=== PATIENT | female | born 1960 | race Caucasian/White ===

== ENCOUNTER 2019-09-11 07:39 | Inpatient (IN) | payer BC, SELFPAY ==
[2019-09-11] VITALS (10 sets, daily range): BP systolic 114–135; BP diastolic 70–90
[~2019-09-11] VITALS: Ht 176.5 cm; Wt 81.8 kg
[2019-09-11] MEDS ORDERED: NO HOME MEDS (07:49)
[2019-09-11] MEDS ORDERED: aminocaproic acid 250 MG/1 ML inj. ONE (08:00)
[2019-09-11] MEDS ORDERED: albumin (human) 25% 100 ML IV solution IV ONE (08:00)
[2019-09-11] MEDS ORDERED: phenylephrine 10mg/ml inj. ONE (08:00)
[2019-09-11] MEDS ORDERED: sodium bicarbonate (8.4%) 1 mEq/ml syringe ONE (08:00)
[2019-09-11] MEDS ORDERED: calcium chloride 100 MG/1 ML inj IV ONE (08:00)
[2019-09-11] MEDS ORDERED: LIDOcaine 2% (20 mg/ml) 5ml cardiac syringe ONE (08:00)
[2019-09-11] MEDS ORDERED: heparin 10,000 units/1 ML INJ ONE (08:00)
[2019-09-11] MEDS ORDERED: MAGNESIUM SULFATE 4 MEQ/ML (5gm/10ml) injection ONE (08:00)
[2019-09-11] MEDS ORDERED: methylPREDNISolone sod. succ. 500mg inj ONE (08:00)
[2019-09-11] MEDS ORDERED: LORazepam 1 MG tablet PO ONE (08:25)
[2019-09-11 08:51] LABS: BASOPHILS % (AUTO) 0.4 % (0-1); EOSINOPHILS % (AUTO) 0.2 % (0-6); HEMATOCRIT 45.9 % (35.0-45.0); LYMPHOCYTES # (AUTO) 2.5 X10'3 (1.1-4.8); LYMPHOCYTES % (AUTO) 22.9 % (21-51); MEAN CORPUSCULAR HEMOGLOBIN 32.1 PG (27.0-31.0); MEAN CORPUSCULAR HGB CONC 34.9 g/dL (33.0-36.5); MEAN CORPUSCULAR VOLUME 92.1 FL (78-98); MEAN PLATELET VOLUME 8.9 FL (7.4-10.4); MONOCYTES # (AUTO) 0.7 X10'3 (0-0.9); MONOCYTES % (AUTO) 6.1 % (2-12); NEUTROPHILS # (AUTO) 7.6 X10'3 (1.8-7.7); NEUTROPHILS % (AUTO) 70.4 % (42-75); PLATELET COUNT 210 X10'3 (140-440); RED BLOOD COUNT 4.98 X10'6 (4.20-5.60); RED CELL DISTRIBUTION WIDTH 12.7 % (11.5-14.5); WHITE BLOOD COUNT 10.8 X10'3 (4.5-11.0)
--- NOTE | 2019-09-11 08:54 | NUR ---
pt states she does not want the ativan at this time. she was stating if she could just get a phone she wouldn't feel anxious. looking for a phone and or ranch hand livestock cord that she could use.
[2019-09-11] MEDS: atorvastatin 20mg tablet PO SCH (09:07)
[2019-09-11] MEDS: metoprolol tartrate 25mg tablet PO SCH ×2 (09:07→20:46)
--- NOTE | 2019-09-11 09:09 | NUR ---
radiology called to see if they could come down and do echo, they are on their way
[2019-09-11 09:12] LABS: ALANINE AMINOTRANSFERASE 47 U/L (12-78); ALBUMIN 4.1 G/DL (3.4-5.0); ALBUMIN/GLOBULIN RATIO 1.1 (1.1-1.5); ALKALINE PHOSPHATASE 75 IU/L (46-116); ANION GAP 13 (8-16); ASPARTATE AMINO TRANSFERASE 31 U/L (10-37); BILIRUBIN,TOTAL 0.7 MG/DL (0.1-1.0); BLOOD UREA NITROGEN 13 MG/DL (7-18); BUN/CREATININE RATIO 20.6 (6.6-38.0); CHLORIDE 107 MMOL/L (99-107); CREATININE 0.63 MG/DL (0.40-0.90); GLUCOSE 90 MG/DL (70-104); POTASSIUM 3.7 MMOL/L (3.5-5.1); SODIUM 142 MMOL/L (135-145); TOTAL CARBON DIOXIDE 22.5 MMOL/L (24-32); TOTAL PROTEIN 7.7 G/DL (6.4-8.2); eGFR > 90 ML/MIN
[2019-09-11 09:18] LABS: CHOL/HDL RATIO 4.1 (0.00-4.99); CHOLESTEROL 189 MG/DL (0-200); HDL CHOLESTEROL 46 MG/DL (35-60); LDL CHOLESTEROL 120 MG/DL (50-100); MAGNESIUM 1.9 MG/DL (1.5-2.4); TRIGLYCERIDES 139 MG/DL (20-135)
[2019-09-11] MEDS ORDERED: magnesium 4gm in 100ml NS 100 ML IV PRN (10:45)
[2019-09-11] MEDS ORDERED: magnesium Cl slow-release 64mg tablet PO PRN (10:45)
[2019-09-11] MEDS ORDERED: ondansetron/PF 4mg/2ml inj IV PRN (10:45)
[2019-09-11] MEDS ORDERED: morphine 2 MG/ML inj. syringe IV PRN ×2 (10:45)
[2019-09-11] MEDS ORDERED: HYDROcodone/acetaminophen 5mg/325mg tablet PO PRN (10:45)
[2019-09-11] MEDS ORDERED: potassium CL 10mEq/100ml bag 100 ML IV PRN ×2 (10:45)
[2019-09-11] MEDS ORDERED: potassium Cl 20 mEq SR tablet PO PRN ×2 (10:45)
[2019-09-11] MEDS ORDERED: acetaminophen 325mg tablet PO PRN ×2 (10:45)
[2019-09-11] MEDS ORDERED: HYDROcodone/acetaminophen 10/325mg tab PO PRN (10:45)
[2019-09-11] MEDS ORDERED: mag hydrox/Alum hydrox/simeth 30ml oral suspension PO PRN (10:45)
[2019-09-11] MEDS ORDERED: magnesium 2GM in 50ml NS 50 ML IV PRN (10:45)
[2019-09-11] MEDS ORDERED: heparin 25,000 UNIT/250ml bag 250 ML IV SCH (10:54)
[2019-09-11] MEDS ORDERED: heparin 10,000 units/1 ML INJ IV PRN (10:55)
[2019-09-11] MEDS ORDERED: heparin 10,000 units/1 ML INJ IV ONE (10:55)
[2019-09-11] MEDS: normal saline 1000ml 1,000 ML IV SCH ×2 (10:58→20:47)
--- NOTE | 2019-09-11 13:00 | NUR ---
Patient arrived to PCU and ambulated to hospital bed. Telemetry monitoring initiated. Patient oriented to room and to call light. Vital signs: HR: 73, O2 97% on RA, BP 138/92, RR 18. Pain 0/10. 2 RN skin check performed. All immediate needs met at this time.
[2019-09-11] MEDS ORDERED: iohexol 350MG/ML 100ml bottle IV ONE (17:51)
[2019-09-11] MEDS ORDERED: LIDOcaine 1% (10mg/ml)w/preservative injection 20ml MDV ONE (17:51)
[2019-09-11] MEDS ORDERED: midazolam 2 mg/2 ml injection ONE (18:12)
[2019-09-11] MEDS ORDERED: fentaNYL/PF 50MCG/1 ML 2ML syringe ONE (18:12)
--- NOTE | 2019-09-11 18:30 | NUR ---
Patient in room PCU 3024. I have received report from Ofelia SANABRIA and had the opportunity to ask questions and assume patient care.
--- NOTE | 2019-09-11 18:59 | NUR ---
Orientee documentation: I have reviewed and agree with all interventions, assessments performed and documented by DANIELE Whelan. Orientee Medication Administration: For this medication-pass time frame, all medication were reviewed, dispensed, administered and documented per hospital policy by DANIELE Whelan.
[2019-09-11] MEDS ORDERED: OXAZEpam 15mg capsule PO PRN (19:20)
[2019-09-11] MEDS ORDERED: proCHLORperazine 10 MG/2 ml inj IV PRN (19:20)
[2019-09-11] MEDS ORDERED: nitroGLYCERIN 0.4mg SUBLingual tab SL PRN (19:20)
[2019-09-11] MEDS ORDERED: metoprolol tartrate 50mg tablet PO SCH (20:00)
[2019-09-11] MEDS: K and/or MAG REPLACEMENT MC SCH (20:00)
[2019-09-11] MEDS ORDERED: temazepam 15mg capsule PO PRN (21:00)
[2019-09-12 00:40] VITALS: BP 105/65
[2019-09-12 02:00] VITALS: BP 103/66
[2019-09-12 05:23] LABS: ALANINE AMINOTRANSFERASE 42 U/L (12-78); ALBUMIN 3.4 G/DL (3.4-5.0); ALBUMIN/GLOBULIN RATIO 1.1 (1.1-1.5); ALKALINE PHOSPHATASE 80 IU/L (46-116); ANION GAP 7 (8-16); ASPARTATE AMINO TRANSFERASE 28 U/L (10-37); BILIRUBIN,TOTAL 0.5 MG/DL (0.1-1.0); BLOOD UREA NITROGEN 15 MG/DL (7-18); BUN/CREATININE RATIO 23.4 (6.6-38.0); CALCIUM 8.9 MG/DL (8.5-10.1); CHLORIDE 110 MMOL/L (99-107); CHOL/HDL RATIO 4.8 (0.00-4.99); CHOLESTEROL 153 MG/DL (0-200); CREATININE 0.64 MG/DL (0.40-0.90); GLUCOSE 88 MG/DL (70-104); HDL CHOLESTEROL 32 MG/DL (35-60); LDL CHOLESTEROL 92 MG/DL (50-100); MAGNESIUM 1.9 MG/DL (1.5-2.4); POTASSIUM 4.3 MMOL/L (3.5-5.1); SODIUM 144 MMOL/L (135-145); TOTAL CARBON DIOXIDE 27.3 MMOL/L (24-32); TOTAL PROTEIN 6.6 G/DL (6.4-8.2); TRIGLYCERIDES 223 MG/DL (20-135); eGFR > 90 ML/MIN
[2019-09-12 05:24] LABS: BASOPHILS # (AUTO) 0.1 X10'3 (0-0.2); BASOPHILS % (AUTO) 0.7 % (0-1); EOSINOPHILS # (AUTO) 0.1 X10'3 (0-0.9); EOSINOPHILS % (AUTO) 1.4 % (0-6); HEMATOCRIT 42.8 % (35.0-45.0); HEMOGLOBIN 14.8 g/dl (12.0-16.0); LYMPHOCYTES # (AUTO) 3.7 X10'3 (1.1-4.8); LYMPHOCYTES % (AUTO) 38.2 % (21-51); MEAN CORPUSCULAR HEMOGLOBIN 32.5 PG (27.0-31.0); MEAN CORPUSCULAR HGB CONC 34.7 g/dL (33.0-36.5); MEAN CORPUSCULAR VOLUME 93.5 FL (78-98); MEAN PLATELET VOLUME 8.8 FL (7.4-10.4); MONOCYTES % (AUTO) 9.8 % (2-12); NEUTROPHILS # (AUTO) 4.8 X10'3 (1.8-7.7); NEUTROPHILS % (AUTO) 49.9 % (42-75); PLATELET COUNT 196 X10'3 (140-440); RED BLOOD COUNT 4.57 X10'6 (4.20-5.60); RED CELL DISTRIBUTION WIDTH 12.5 % (11.5-14.5); WHITE BLOOD COUNT 9.7 X10'3 (4.5-11.0)
[2019-09-12 06:00] VITALS: BP 130/71
--- NOTE | 2019-09-12 06:06 | NUR ---
Problems reprioritized. Patient report given, questions answered & plan of care reviewed with Ofelia SANABRIA.
--- NOTE | 2019-09-12 06:27 | NUR ---
Patient in room PCU 3024. I have received report from Christel SANABRIA and had the opportunity to ask questions and assume patient care. Patient in bed resting comfortably. In no acute distress. All immediate needs met at this time.
[2019-09-12] MEDS: K and/or MAG REPLACEMENT MC SCH ×2 (08:00→20:00)
[2019-09-12] MEDS ORDERED: atorvastatin 20mg tablet PO SCH (08:00)
[2019-09-12] MEDS: metoprolol tartrate 25mg tablet PO SCH ×2 (08:27→20:36)
[2019-09-12] MEDS: atorvastatin 20mg tablet PO SCH (08:28)
[2019-09-12] MEDS: aspirin 81mg tablet.DR PO SCH (08:28)
[2019-09-12 08:37] LABS: HEMOGLOBIN A1C 5.3 % (4.5-6.2)
[2019-09-12 09:14] LABS: CLARITY,URINE CLOUDY (Clear); COLOR,URINE YELLOW (Yellow); GLUCOSE, URINE NEGATIVE (Neg); KETONES,URINE NEGATIVE (Neg); LEUKOCYTE ESTERASE ,URINE NEGATIVE (Neg); NITRITES, URINE NEGATIVE (Neg); OCCULT BLOOD,URINE MODERATE (Neg); PH,URINE 5.5 (4.8-8.0); PROTEIN,URINE NEGATIVE (Neg)
[2019-09-12 09:17] LABS: UA COLLECTION TYPE NON-SPECIFIED
[2019-09-12 09:19] LABS: URINE AMPHETAMINE SCREEN NEGATIVE (Neg); URINE BARBITUATE SCREEN NEGATIVE (Neg); URINE BENZODIAZEPINES SCREEN POSITIVE (Neg); URINE CANNABINOID SCREEN POSITIVE (Neg); URINE COCAINE SCREEN NEGATIVE (Neg); URINE METHADONE SCREEN NEGATIVE (Neg); URINE OPIATE SCREEN NEGATIVE (Neg); URINE PHENCYCLIDINE SCREEN NEGATIVE (Neg)
[2019-09-12 09:27] LABS: MUCUS STRANDS MANY /LPF (Neg); SQUAMOUS EPITHELIAL CELL,UR MANY /LPF (FEW)
[2019-09-12 09:28] LABS: BACTERIA,URINE 1+ /HPF (Neg); RBC,URINE 0-2 /HPF (0-2); WBC,URINE 0-4 /HPF (0-4)
[2019-09-12 09:29] LABS: HYALINE CASTS 0-3 /LPF (NEGATIVE)
[2019-09-12 11:00] VITALS: BP_SYST 116; BP_SYST 130; BP_DIAS 71; BP_DIAS 80
[2019-09-12] MEDS ORDERED: dextrose 50%-water 50ml dispensing syringe IV PRN (13:20)
[2019-09-12 14:54] LABS: PARTIAL THROMBOPLASTIN TIME 26 SECONDS (22-32)
[2019-09-12 15:00] VITALS: BP 127/72
[2019-09-12 16:25] LABS: ABG BASE EXCESS -3.2 mmol/L (-2.0-2.0); ABG HCO3 19.1 mmol/L (22.0-26.0); ABG OXYGEN SATURATION 97.9 % (94-97); ABG PCO2 (T) 27.9 mmHg (32.0-45.0); ABG PO2 (T) 103.2 mmHg (75.0-100.0); ALLEN'S TEST POSITIVE; FCOHb 0.2 % (0.0-3.9); FLOW 0 L/min; FMetHb 0.1 % (0.0-1.5); FO2Hb 97.6 % (94-97); TOTAL HEMOGLOBIN 15.2 G/dl (12.0-16.0)
--- NOTE | 2019-09-12 18:30 | NUR ---
Orientee documentation: I have reviewed and agree with all interventions, assessments performed and documented by Cleopatra SANABRIA. Orientee Medication Administration: For this medication-pass time frame, all medication were reviewed, dispensed, administered and documented per hospital policy by DANIELE Whelan.
--- NOTE | 2019-09-12 18:31 | NUR ---
Problems reprioritized. Patient report given, questions answered & plan of care reviewed with DANIELE Kearney. Patient stable at transfer of care.
--- NOTE | 2019-09-12 19:30 | NUR ---
Problems reprioritized. Patient report given, questions answered & plan of care reviewed with Francisca
[2019-09-12] MEDS ORDERED: MESSAGE TO NURSING PO ONE (20:00)
--- NOTE | 2019-09-12 20:06 | NUR ---
Patient in room MED 314. I have received report from Nubia SANABRIA and had the opportunity to ask questions and assume patient care.
--- NOTE | 2019-09-12 20:07 | NUR ---
Pt came to ACCE unit at 1954, pt oriented to room.
[2019-09-13] VITALS (12 sets, daily range): BP systolic 103–149; BP diastolic 62–85
[2019-09-13 03:36] LABS: BASOPHILS # (AUTO) 0.1 X10'3 (0-0.2); BASOPHILS % (AUTO) 0.6 % (0-1); EOSINOPHILS # (AUTO) 0.2 X10'3 (0-0.9); EOSINOPHILS % (AUTO) 1.5 % (0-6); HEMATOCRIT 41.8 % (35.0-45.0); HEMOGLOBIN 14.5 g/dl (12.0-16.0); LYMPHOCYTES # (AUTO) 3.8 X10'3 (1.1-4.8); LYMPHOCYTES % (AUTO) 35.3 % (21-51); MEAN CORPUSCULAR HEMOGLOBIN 32.3 PG (27.0-31.0); MEAN CORPUSCULAR HGB CONC 34.7 g/dL (33.0-36.5); MEAN PLATELET VOLUME 8.7 FL (7.4-10.4); MONOCYTES # (AUTO) 0.9 X10'3 (0-0.9); MONOCYTES % (AUTO) 8.7 % (2-12); NEUTROPHILS # (AUTO) 5.7 X10'3 (1.8-7.7); NEUTROPHILS % (AUTO) 53.9 % (42-75); PLATELET COUNT 192 X10'3 (140-440); RED BLOOD COUNT 4.49 X10'6 (4.20-5.60); RED CELL DISTRIBUTION WIDTH 12.7 % (11.5-14.5); WHITE BLOOD COUNT 10.6 X10'3 (4.5-11.0)
[2019-09-13 03:49] LABS: ALANINE AMINOTRANSFERASE 43 U/L (12-78); ALBUMIN 3.6 G/DL (3.4-5.0); ALBUMIN/GLOBULIN RATIO 1.1 (1.1-1.5); ALKALINE PHOSPHATASE 74 IU/L (46-116); ANION GAP 11 (8-16); ASPARTATE AMINO TRANSFERASE 28 U/L (10-37); BILIRUBIN,TOTAL 0.7 MG/DL (0.1-1.0); BLOOD UREA NITROGEN 12 MG/DL (7-18); BUN/CREATININE RATIO 20.7 (6.6-38.0); CALCIUM 8.9 MG/DL (8.5-10.1); CHLORIDE 109 MMOL/L (99-107); CREATININE 0.58 MG/DL (0.40-0.90); GLUCOSE 91 MG/DL (70-104); MAGNESIUM 1.9 MG/DL (1.5-2.4); POTASSIUM 3.8 MMOL/L (3.5-5.1); SODIUM 144 MMOL/L (135-145); TOTAL CARBON DIOXIDE 24.3 MMOL/L (24-32); TOTAL PROTEIN 6.8 G/DL (6.4-8.2); eGFR > 90 ML/MIN
[2019-09-13] MEDS ORDERED: MESSAGE TO NURSING PO ONE ×3 (04:00→05:30)
[2019-09-13] MEDS ORDERED: mupirocin 2% nasal ointment 1gm UD NS ONE (05:30)
[2019-09-13] MEDS ORDERED: gabapentin 400mg capsule PO ONE (05:30)
[2019-09-13] MEDS ORDERED: vancomycin/NS 1 GM ADD-VANTAGE 250 ML IV ONE (05:30)
[2019-09-13] MEDS ORDERED: MALTODEXTRIN/FRUCTOSE 0.68 KCAL/ML LIQUID 296ML BOTTLE PO ONE (05:30)
[2019-09-13] MEDS ORDERED: insulin glargine (Lantus) pen - multi-dose SQ PRN ×2 (05:30→13:50)
[2019-09-13] MEDS ORDERED: ceFAZolin 2gm in dextrose, iso 50 ML IV ONE (05:30)
[2019-09-13] MEDS ORDERED: ringers solution, lacted 1,000 ML IV ONE (05:30)
--- NOTE | 2019-09-13 05:34 | NUR ---
Pt was given first round of CHG at 0400, second round of CHG at 0515. Pt was educated on use of "flutter" and IS and understood knowledge of how to use by return demonstration.
[2019-09-13] MEDS ORDERED: LORazepam 2 mg/ml vial IV ONE (06:00)
[2019-09-13] MEDS ORDERED: famotidine 10mg tablet PO ONE (06:00)
--- NOTE | 2019-09-13 06:30 | NUR ---
Patient in room MED 314. I have received report from Francisca SANABRIA and had the opportunity to ask questions and assume patient care.
--- NOTE | 2019-09-13 06:35 | NUR ---
Problems reprioritized. Patient report given, questions answered & plan of care reviewed with Sulma SANABRIA.
[2019-09-13] MEDS ORDERED: ceFAZolin 1000mg inj ONE (06:54)
[2019-09-13] MEDS ORDERED: potassium Cl 2 mEq/ml inj IV ONE (08:00)
[2019-09-13] MEDS: atorvastatin 20mg tablet PO SCH (08:00)
[2019-09-13] MEDS ORDERED: papaverine 30 mg/ml 2ml inj. IA ONE (08:00)
[2019-09-13] MEDS: metoprolol tartrate 25mg tablet PO SCH (08:00)
[2019-09-13] MEDS ORDERED: heparin 10,000 units/1 ML INJ IR ONE (08:00)
[2019-09-13] MEDS: aspirin 81mg tablet.DR PO SCH (08:30)
[2019-09-13] MEDS ORDERED: isoflurane 100ml inhalation liquid IH ONE (08:45)
[2019-09-13] MEDS ORDERED: SUFENTANIL CITRATE 50 MCG/ML 2ml ampule IV ONE (08:46)
[2019-09-13] MEDS ORDERED: midazolam 2 mg/2 ml injection ONE (08:46)
[2019-09-13 09:36] LABS: ABG BASE EXCESS -4.7 mmol/L (-2.0-2.0); ABG HCO3 19.7 mmol/L (22.0-26.0); ABG OXYGEN SATURATION 99.6 % (94-97); ABG PCO2 34.7 mmHg (32.0-45.0); CL (ABG) 106 mmol/L (98-110); FCOHb 0.5 % (0.0-3.9); FO2Hb 99.1 % (94-97); GLUCOSE (ABG) 198 mg/dl (70-140); IONIZED CA (ABG) 1.15 mmol/L (1.10-1.43); K (ABG) 3.7 mmol/L (3.5-5.0); TOTAL HEMOGLOBIN 13.6 G/dl (12.0-16.0)
[2019-09-13] MEDS ORDERED: rocuronium 10mg/ml inj IV ONE (10:15)
[2019-09-13] MEDS ORDERED: LIDOcaine 2% (20mg/ml) 5ml vial ONE (10:15)
[2019-09-13] MEDS ORDERED: phenylephrine 10mg/ml inj. ONE (10:15)
[2019-09-13] MEDS ORDERED: etomidate 2mg/ml inj. ONE (10:15)
[2019-09-13 10:46] LABS: ABG BASE EXCESS VENOUS -3.7 mmol/L; ABG HCO3 VENOUS 22.3 mmol/L; ABG PCO2 VENOUS 43.9 mmHg; ABG PO2 VENOUS 41.7 mmHg; CL (ABG) 107 mmol/L (98-110); FCOHb VENOUS 0.8 %; FHHb VENOUS 22.8 %; FO2Hb VENOUS 76.4 %; GLUCOSE (ABG) 98 mg/dl (70-140); IONIZED CA (ABG) 1.17 mmol/L (1.10-1.43); K (ABG) 3.5 mmol/L (3.5-5.0); TOTAL HEMOGLOBIN 13.3 G/dl (12.0-16.0)
[2019-09-13] MEDS ORDERED: ipratropium/albuterol 3ml nebule IH PRN (11:05)
[2019-09-13] MEDS: K and/or MAG REPLACEMENT MC SCH (11:08)
[2019-09-13] MEDS: Insulin Reg/NS 100units/100mL 100 ML IV SCH (11:12)
[2019-09-13 11:15] LABS: ABG BASE EXCESS VENOUS -1.7 mmol/L; ABG HCO3 VENOUS 23.4 mmol/L; ABG PCO2 VENOUS 40.9 mmHg; ABG PO2 VENOUS 51.8 mmHg; CL (ABG) 105 mmol/L (98-110); FCOHb VENOUS 0.7 %; FHHb VENOUS 12.9 %; FMetHb VENOUS 0.3 %; FO2Hb VENOUS 86.1 %; GLUCOSE (ABG) 68 mg/dl (70-140); IONIZED CA (ABG) 1.02 mmol/L (1.10-1.43); K (ABG) 5.1 mmol/L (3.5-5.0); TOTAL HEMOGLOBIN 9.6 G/dl (12.0-16.0)
[2019-09-13 11:20] LABS: ABG HCO3 25.6 mmol/L (22.0-26.0); ABG OXYGEN SATURATION 99.2 % (94-97); ABG PCO2 40.4 mmHg (32.0-45.0); ABG PO2 430.9 mmHg (75.0-100.0); CL (ABG) 107 mmol/L (98-110); FCOHb 0.4 % (0.0-3.9); FMetHb 0.3 % (0.0-1.5); FO2Hb 98.5 % (94-97); GLUCOSE (ABG) 74 mg/dl (70-140); K (ABG) 4.7 mmol/L (3.5-5.0); TOTAL HEMOGLOBIN 9.7 G/dl (12.0-16.0)
[2019-09-13 11:45] LABS: ABG BASE EXCESS -0.3 mmol/L (-2.0-2.0); ABG HCO3 24.4 mmol/L (22.0-26.0); ABG OXYGEN SATURATION 99.4 % (94-97); ABG PCO2 39.9 mmHg (32.0-45.0); ABG PO2 305.5 mmHg (75.0-100.0); CL (ABG) 108 mmol/L (98-110); FCOHb 0.5 % (0.0-3.9); FMetHb 0.3 % (0.0-1.5); FO2Hb 98.6 % (94-97); GLUCOSE (ABG) 71 mg/dl (70-140); IONIZED CA (ABG) 1.04 mmol/L (1.10-1.43); K (ABG) 5.1 mmol/L (3.5-5.0); TOTAL HEMOGLOBIN 10.1 G/dl (12.0-16.0)
[2019-09-13 12:15] LABS: ABG BASE EXCESS 4.4 mmol/L (-2.0-2.0); ABG HCO3 28.3 mmol/L (22.0-26.0); ABG OXYGEN SATURATION 98.6 % (94-97); ABG PCO2 39.2 mmHg (32.0-45.0); ABG PO2 269.5 mmHg (75.0-100.0); CL (ABG) 105 mmol/L (98-110); FCOHb 0.3 % (0.0-3.9); FMetHb 0.5 % (0.0-1.5); FO2Hb 97.8 % (94-97); GLUCOSE (ABG) 79 mg/dl (70-140); IONIZED CA (ABG) 0.95 mmol/L (1.10-1.43); K (ABG) 4.7 mmol/L (3.5-5.0); TOTAL HEMOGLOBIN 9.1 G/dl (12.0-16.0)
[2019-09-13] MEDS ORDERED: acetaminophen 1,000mg/100ml IV 100 ML IV ONE (12:57)
[2019-09-13 13:01] LABS: ABG HCO3 VENOUS 24.9 mmol/L; ABG PCO2 VENOUS 41.6 mmHg; ABG PO2 VENOUS 31.5 mmHg; CL (ABG) 107 mmol/L (98-110); FCOHb VENOUS 0.7 %; FHHb VENOUS 34.1 %; FMetHb VENOUS 0.5 %; FO2Hb VENOUS 64.7 %; GLUCOSE (ABG) 117 mg/dl (70-140); IONIZED CA (ABG) 1.21 mmol/L (1.10-1.43); K (ABG) 4.1 mmol/L (3.5-5.0); TOTAL HEMOGLOBIN 10.9 G/dl (12.0-16.0)
[2019-09-13] MEDS ORDERED: nitroGLYCERIN-Tridil 50MG/D5W 250 ML IV PRN (13:47)
[2019-09-13] MEDS ORDERED: Insulin Reg/NS 100units/100mL 100 ML IV SCH (13:47)
[2019-09-13] MEDS ORDERED: sodium chloride 0.45% 1,000 ML IV SCH (13:47)
[2019-09-13] MEDS ORDERED: DOPamine 400mg/D5W 250ml 250 ML IV PRN (13:47)
[2019-09-13] MEDS ORDERED: niCARDipine-NS 40mg/200ml IVPB 200 ML IV PRN (13:47)
[2019-09-13] MEDS ORDERED: acetaminophen 325mg tablet PO PRN (13:50)
[2019-09-13] MEDS ORDERED: dextrose 50%-water 50ml dispensing syringe IV PRN (13:50)
[2019-09-13] MEDS ORDERED: pantoprazole 40 MG vial IV ONE (13:50)
[2019-09-13] MEDS ORDERED: morphine 4 MG/ML inj SYRINge IV PRN ×2 (13:50)
[2019-09-13] MEDS ORDERED: sodium phosphate inj. 15 MMOL in dextrose 5%-water 250 ML IV PRN (13:50)
[2019-09-13] MEDS ORDERED: magnesium 4gm in 100ml NS 100 ML IV PRN (13:50)
[2019-09-13] MEDS ORDERED: normal saline 250ml IV soln 250 ML IV PRN (13:50)
[2019-09-13] MEDS ORDERED: albumin (Human) 5% 250ml 250 ML IV PRN (13:50)
[2019-09-13] MEDS ORDERED: mineral oil 133ml enema RC PRN (13:50)
[2019-09-13] MEDS ORDERED: sodium phosphate inj. 30 MMOL in dextrose 5%-water 250 ML IV PRN (13:50)
[2019-09-13] MEDS ORDERED: bisacodyl 10mg suppository rectal RC PRN (13:50)
[2019-09-13] MEDS ORDERED: Neutra Phos packet PO PRN (13:50)
[2019-09-13] MEDS ORDERED: ondansetron/PF 4mg/2ml inj IV PRN (13:50)
[2019-09-13] MEDS ORDERED: metoclopramide 5 mg/ml inj IV PRN (13:50)
[2019-09-13] MEDS ORDERED: magnesium citrate 296ml oral solution PO PRN (13:50)
[2019-09-13] MEDS ORDERED: magnesium hydroxide 30ml (MOM) UD suspension PO PRN (13:50)
--- NOTE | 2019-09-13 13:54 | NUR ---
Patient arrived from [facility]
--- NOTE | 2019-09-13 14:09 | NUR ---
Nutrition consult: Pt s/p CABG x 4 today, would benefit from heart healthy and post cardiac surgery nutrition therapy educations once stable. Will continue to follow. Addendum: 09/13/19 at [address] Amended: Links added.
[2019-09-13 14:12] LABS: BASOPHILS % (AUTO) 0.1 % (0-1); EOSINOPHILS % (AUTO) 0.3 % (0-6); HEMATOCRIT 36.7 % (35.0-45.0); HEMOGLOBIN 12.7 g/dl (12.0-16.0); LYMPHOCYTES % (AUTO) 6.5 % (21-51); MEAN CORPUSCULAR HEMOGLOBIN 32.2 PG (27.0-31.0); MEAN CORPUSCULAR HGB CONC 34.6 g/dL (33.0-36.5); MEAN CORPUSCULAR VOLUME 93.2 FL (78-98); MEAN PLATELET VOLUME 9.1 FL (7.4-10.4); MONOCYTES # (AUTO) 0.8 X10'3 (0-0.9); MONOCYTES % (AUTO) 5.4 % (2-12); NEUTROPHILS % (AUTO) 87.7 % (42-75); PLATELET COUNT 115 X10'3 (140-440); RED BLOOD COUNT 3.93 X10'6 (4.20-5.60); RED CELL DISTRIBUTION WIDTH 12.3 % (11.5-14.5); WHITE BLOOD COUNT 14.8 X10'3 (4.5-11.0)
[2019-09-13 14:21] LABS: ABG BASE EXCESS -3.4 mmol/L (-2.0-2.0); ABG HCO3 22.4 mmol/L (22.0-26.0); ABG PCO2 (T) 42.4 mmHg (32.0-45.0); ABG PO2 (T) 96.5 mmHg (75.0-100.0); FCOHb 0.6 % (0.0-3.9); FLOW 60 L/min; FMetHb 0.1 % (0.0-1.5); FO2Hb 96.3 % (94-97); PATIENT TEMPERATURE 36.7; PEEP 5 cm H2O; RESPIRATORY RATE 12 b/min; TIDAL VOLUME 600 mL; TOTAL HEMOGLOBIN 14.2 G/dl (12.0-16.0)
[2019-09-13 14:25] LABS: PARTIAL THROMBOPLASTIN TIME 27 SECONDS (22-32)
[2019-09-13 14:30] LABS: ACTIVATED CLOTTING TIME 117 SEC (101-148)
[2019-09-13 14:34] LABS: ALKALINE PHOSPHATASE 50 IU/L (46-116); BLOOD UREA NITROGEN 9 MG/DL (7-18); BUN/CREATININE RATIO 15.5 (6.6-38.0); CALCIUM 8.3 MG/DL (8.5-10.1); CREATININE 0.58 MG/DL (0.40-0.90); GLUCOSE 148 MG/DL (70-104); MAGNESIUM 2.4 MG/DL (1.5-2.4); PHOSPHORUS 2.7 MG/DL (2.3-4.5); eGFR > 90 ML/MIN
[2019-09-13 14:35] LABS: ALANINE AMINOTRANSFERASE 30 U/L (12-78); ALBUMIN 3.1 G/DL (3.4-5.0); ALBUMIN/GLOBULIN RATIO 1.5 (1.1-1.5); ANION GAP 8 (8-16); ASPARTATE AMINO TRANSFERASE 43 U/L (10-37); BILIRUBIN,TOTAL 1.1 MG/DL (0.1-1.0); CHLORIDE 112 MMOL/L (99-107); POTASSIUM 3.8 MMOL/L (3.5-5.1); SODIUM 145 MMOL/L (135-145); TOTAL CARBON DIOXIDE 24.7 MMOL/L (24-32); TOTAL PROTEIN 5.2 G/DL (6.4-8.2)
[2019-09-13] MEDS: potassium Cl 20mEq/100mL bag 100 ML IV PRN ×2 (15:06→16:59)
--- NOTE | 2019-09-13 16:10 | NUR ---
Patient extubated to 4LNC. Patient tolerated well and is alert and oriented x4.
[2019-09-13] MEDS: ceFAZolin 1GM/D5W- ADD-VANTAGE 50 ML IV SCH (16:18)
--- NOTE | 2019-09-13 18:07 | NUR ---
Problems reprioritized. Patient report given, questions answered & plan of care reviewed with Bree SANABRIA and Sujey SANABRIA.
--- NOTE | 2019-09-13 18:30 | NUR ---
Patient in room ICU 2039. I have received report from Helena SANABRIA and had the opportunity to ask questions and assume patient care along with Sujey SANABRIA.
[2019-09-13] MEDS: magnesium 2GM in 50ml NS 50 ML IV PRN ×2 (18:56→23:04)
[2019-09-13 20:45] LABS: BASOPHILS % (AUTO) 0 % (0-1); EOSINOPHILS % (AUTO) 0 % (0-6); HEMOGLOBIN 13.2 g/dl (12.0-16.0); LYMPHOCYTES # (AUTO) 0.7 X10'3 (1.1-4.8); LYMPHOCYTES % (AUTO) 4.5 % (21-51); MEAN CORPUSCULAR HGB CONC 33.8 g/dL (33.0-36.5); MEAN CORPUSCULAR VOLUME 94.6 FL (78-98); MEAN PLATELET VOLUME 9.6 FL (7.4-10.4); MONOCYTES # (AUTO) 0.7 X10'3 (0-0.9); MONOCYTES % (AUTO) 4.5 % (2-12); NEUTROPHILS # (AUTO) 14.3 X10'3 (1.8-7.7); PLATELET COUNT 124 X10'3 (140-440); RED BLOOD COUNT 4.12 X10'6 (4.20-5.60); RED CELL DISTRIBUTION WIDTH 12.8 % (11.5-14.5); WHITE BLOOD COUNT 15.8 X10'3 (4.5-11.0)
[2019-09-13 20:59] LABS: ALBUMIN 3.5 G/DL (3.4-5.0); ANION GAP 7 (8-16); BLOOD UREA NITROGEN 9 MG/DL (7-18); BUN/CREATININE RATIO 14.5 (6.6-38.0); CALCIUM 8.5 MG/DL (8.5-10.1); CHLORIDE 111 MMOL/L (99-107); CREATININE 0.62 MG/DL (0.40-0.90); GLUCOSE 137 MG/DL (70-104); MAGNESIUM 2.3 MG/DL (1.5-2.4); PHOSPHORUS 3.3 MG/DL (2.3-4.5); POTASSIUM 4.3 MMOL/L (3.5-5.1); SODIUM 144 MMOL/L (135-145); TOTAL CARBON DIOXIDE 25.9 MMOL/L (24-32); eGFR > 90 ML/MIN
[2019-09-13] MEDS: mupirocin 2% nasal ointment 1gm UD NS SCH (21:10)
[2019-09-13] MEDS: vancomycin/NS 1 GM ADD-VANTAGE 250 ML IV SCH (21:10)
[2019-09-13] MEDS: gabapentin 300mg capsule PO SCH (21:11)
[2019-09-13] MEDS: HYDROcodone/acetaminophen 10/325mg tab PO PRN (21:12)
[2019-09-13] MEDS: sennosides/docusate sodium tablet PO SCH (21:12)
[2019-09-13] MEDS: potassium Cl 20 mEq SR tablet PO PRN (22:38)
[2019-09-14] VITALS (24 sets, daily range): BP systolic 74–125; BP diastolic 50–84
[2019-09-14] MEDS: ceFAZolin 1GM/D5W- ADD-VANTAGE 50 ML IV SCH ×3 (00:12→16:05)
[2019-09-14] MEDS: HYDROcodone/acetaminophen 10/325mg tab PO PRN ×5 (03:12→23:21)
[2019-09-14 04:35] LABS: BASOPHILS % (AUTO) 0.1 % (0-1); EOSINOPHILS % (AUTO) 0 % (0-6); HEMATOCRIT 37.7 % (35.0-45.0); HEMOGLOBIN 12.9 g/dl (12.0-16.0); LYMPHOCYTES # (AUTO) 1.1 X10'3 (1.1-4.8); LYMPHOCYTES % (AUTO) 6.3 % (21-51); MEAN CORPUSCULAR HEMOGLOBIN 32.2 PG (27.0-31.0); MEAN CORPUSCULAR HGB CONC 34.1 g/dL (33.0-36.5); MEAN CORPUSCULAR VOLUME 94.5 FL (78-98); MEAN PLATELET VOLUME 9.7 FL (7.4-10.4); MONOCYTES # (AUTO) 1.8 X10'3 (0-0.9); MONOCYTES % (AUTO) 10.5 % (2-12); NEUTROPHILS # (AUTO) 14.2 X10'3 (1.8-7.7); NEUTROPHILS % (AUTO) 83.1 % (42-75); PLATELET COUNT 131 X10'3 (140-440); RED BLOOD COUNT 3.99 X10'6 (4.20-5.60); RED CELL DISTRIBUTION WIDTH 12.5 % (11.5-14.5); WHITE BLOOD COUNT 17.1 X10'3 (4.5-11.0)
--- NOTE | 2019-09-14 04:45 | NUR ---
DC'd PA and Arterial line. No issues, patient tolerated well. Hemodynamically stable, will continue to monitor.
[2019-09-14 04:48] LABS: PARTIAL THROMBOPLASTIN TIME 26 SECONDS (22-32)
[2019-09-14 04:52] LABS: ALANINE AMINOTRANSFERASE 39 U/L (12-78); ALBUMIN 3.4 G/DL (3.4-5.0); ALBUMIN/GLOBULIN RATIO 1.2 (1.1-1.5); ALKALINE PHOSPHATASE 53 IU/L (46-116); ANION GAP 10 (8-16); ASPARTATE AMINO TRANSFERASE 57 U/L (10-37); BILIRUBIN,TOTAL 0.6 MG/DL (0.1-1.0); BLOOD UREA NITROGEN 7 MG/DL (7-18); BUN/CREATININE RATIO 9.1 (6.6-38.0); CHLORIDE 108 MMOL/L (99-107); CREATININE 0.77 MG/DL (0.40-0.90); GLUCOSE 150 MG/DL (70-104); MAGNESIUM 2.7 MG/DL (1.5-2.4); PHOSPHORUS 3.3 MG/DL (2.3-4.5); POTASSIUM 4.3 MMOL/L (3.5-5.1); SODIUM 143 MMOL/L (135-145); TOTAL CARBON DIOXIDE 25.4 MMOL/L (24-32); TOTAL PROTEIN 6.2 G/DL (6.4-8.2); eGFR 78 ML/MIN
[2019-09-14] MEDS: potassium Cl 20 mEq SR tablet PO PRN (05:51)
--- NOTE | 2019-09-14 06:06 | NUR ---
Orientee documentation: I have reviewed and agree with all interventions, assessments performed and documented by Sujey SANABRIA. Orientee Medication Administration: For this medication-pass time frame, all medication were reviewed, dispensed, administered and documented per hospital policy by Sujey SANABRIA. Problems reprioritized. Patient report given, questions answered & plan of care reviewed with Rehana SANABRIA. Pt sitting up in chair, back pain relieved in this position. No dizziness or nausea when standing, after a few minutes her BP did drop and she felt sweaty. Albumin given for low BP, CI remained above 2. No cardiac gtts through shift, both PA and Art lines with poor waveforms so they were removed.
--- NOTE | 2019-09-14 06:22 | NUR ---
Problems reprioritized. Patient report given, questions answered & plan of care reviewed with Rehana SANABRIA.
[2019-09-14] MEDS: vancomycin/NS 1 GM ADD-VANTAGE 250 ML IV SCH ×2 (07:16→19:18)
[2019-09-14] MEDS: mupirocin 2% nasal ointment 1gm UD NS SCH ×2 (07:17→19:13)
[2019-09-14] MEDS: gabapentin 300mg capsule PO SCH ×3 (07:17→22:03)
[2019-09-14] MEDS: atorvastatin 10mg tablet PO SCH (07:17)
[2019-09-14] MEDS: sennosides/docusate sodium tablet PO SCH ×2 (07:17→19:16)
[2019-09-14] MEDS: metoprolol tartrate 12.5mg (1/2 tablet) PO SCH ×3 (07:30→19:16)
[2019-09-14] MEDS ORDERED: aspirin 325mg tablet, delayed-release (Ecotrin) PO SCH (08:00)
--- NOTE | 2019-09-14 11:11 | NUR ---
CABG Consult: Pt seen by RD for written/verbal CABG/HH diet eds post-op w/ RD contact information provided. PO 75-100% avg NCS meals post-op. Pt is agreeable to strawberry-banana gareth smoothie BIDLD for wound healing needs; notified. LBM 09/10. BMI change from 36 to 24 w/ ht change 59 to 69in and -5kg loss one day without wt method shown likely error; HALEY d/w RN who reports true ht 59in making BMI 36. Will continue to monitor for additional protein needs post-op. Rec: 1. advance diet as medically indicated to heart healthy 2. strawberry-banana gareth smoothie BIDLD 3. honor pt food preferences 4. routine bowel care 5. wt per rx Addendum: 09/14/19 at [address] Amended: Links added.
[2019-09-14] MEDS: JUVEN Smoothie Arginine/Glut./Ca2+Bmb (Juven 19.3pkt) 240ml cup PO SCH ×2 (12:30→17:30)
[2019-09-14] MEDS: Insulin Reg/NS 100units/100mL 100 ML IV SCH (14:50)
--- NOTE | 2019-09-14 18:15 | NUR ---
Patient in room ICU 2039. I have received report from Rehana SANABRIA and had the opportunity to ask questions and assume patient care. Patient is up in her chair, ready to eat dinner. VS stable and she is comfortable.
--- NOTE | 2019-09-14 18:17 | NUR ---
Problems reprioritized. Patient report given, questions answered & plan of care reviewed with DANIELE Rm.
[2019-09-15] VITALS (13 sets, daily range): BP systolic 97–119; BP diastolic 60–80
[2019-09-15] MEDS ORDERED: piperacillin/tazo 3.375gm/50ml 50 ML IV SCH
--- NOTE | 2019-09-15 02:59 | NUR ---
Pt, is doing well, no changes in her condition.
[2019-09-15 03:36] LABS: BASOPHILS # (AUTO) 0.1 X10'3 (0-0.2); BASOPHILS % (AUTO) 0.5 % (0-1); EOSINOPHILS % (AUTO) 0.2 % (0-6); HEMATOCRIT 32.3 % (35.0-45.0); HEMOGLOBIN 11.2 g/dl (12.0-16.0); LYMPHOCYTES # (AUTO) 2.1 X10'3 (1.1-4.8); LYMPHOCYTES % (AUTO) 11.8 % (21-51); MEAN CORPUSCULAR HEMOGLOBIN 32.8 PG (27.0-31.0); MEAN CORPUSCULAR HGB CONC 34.5 g/dL (33.0-36.5); MEAN CORPUSCULAR VOLUME 94.9 FL (78-98); MEAN PLATELET VOLUME 9.6 FL (7.4-10.4); MONOCYTES # (AUTO) 1.9 X10'3 (0-0.9); NEUTROPHILS # (AUTO) 13.6 X10'3 (1.8-7.7); NEUTROPHILS % (AUTO) 76.5 % (42-75); PLATELET COUNT 106 X10'3 (140-440); RED BLOOD COUNT 3.41 X10'6 (4.20-5.60); RED CELL DISTRIBUTION WIDTH 12.7 % (11.5-14.5); WHITE BLOOD COUNT 17.7 X10'3 (4.5-11.0)
[2019-09-15 03:48] LABS: ALBUMIN 3.2 G/DL (3.4-5.0); ANION GAP 3 (8-16); BLOOD UREA NITROGEN 12 MG/DL (7-18); BUN/CREATININE RATIO 17.1 (6.6-38.0); CALCIUM 8.5 MG/DL (8.5-10.1); CHLORIDE 107 MMOL/L (99-107); GLUCOSE 119 MG/DL (70-104); PHOSPHORUS 2.4 MG/DL (2.3-4.5); POTASSIUM 4.5 MMOL/L (3.5-5.1); SODIUM 140 MMOL/L (135-145); TOTAL CARBON DIOXIDE 30.2 MMOL/L (24-32); eGFR 87 ML/MIN
--- NOTE | 2019-09-15 06:21 | NUR ---
Problems reprioritized. Patient report given, questions answered & plan of care reviewed with Adelina SANABRIA.
[2019-09-15] MEDS ORDERED: magnesium 4gm in 100ml NS 100 ML IV PRN (07:50)
[2019-09-15] MEDS ORDERED: potassium Cl 20mEq/100mL bag 100 ML IV PRN (07:50)
[2019-09-15] MEDS ORDERED: magnesium 2GM in 50ml NS 50 ML IV PRN (07:50)
[2019-09-15] MEDS ORDERED: potassium Cl 20 mEq SR tablet PO PRN (07:50)
[2019-09-15] MEDS: mupirocin 2% nasal ointment 1gm UD NS SCH (08:00)
[2019-09-15] MEDS: sennosides/docusate sodium tablet PO SCH ×2 (08:49→20:40)
[2019-09-15] MEDS: aspirin 81mg tablet.DR PO SCH (08:50)
[2019-09-15] MEDS: potassium Cl 20 mEq SR tablet PO SCH ×2 (08:50→20:00)
[2019-09-15] MEDS: atorvastatin 10mg tablet PO SCH (08:50)
[2019-09-15] MEDS: magnesium Cl slow-release 64mg tablet PO SCH ×2 (08:50→20:40)
[2019-09-15] MEDS: gabapentin 300mg capsule PO SCH ×2 (08:50→13:19)
[2019-09-15] MEDS: metoprolol tartrate 12.5mg (1/2 tablet) PO SCH ×2 (08:51→20:41)
[2019-09-15] MEDS: clopidogrel 75mg tablet PO SCH (08:51)
[2019-09-15] MEDS: pantoprazole 40mg Tablet.DR PO SCH (08:54)
[2019-09-15] MEDS: JUVEN Smoothie Arginine/Glut./Ca2+Bmb (Juven 19.3pkt) 240ml cup PO SCH ×2 (12:33→18:06)
--- NOTE | 2019-09-15 18:00 | NUR ---
Patient in room MED 308. I have received report from Negrito SANABRIA and had the opportunity to ask questions and assume patient care.
--- NOTE | 2019-09-15 18:21 | NUR ---
Problems reprioritized. Patient report given, questions answered & plan of care reviewed with DANIELE Michel.
[2019-09-16] VITALS (7 sets, daily range): BP systolic 100–129; BP diastolic 68–89
--- NOTE | 2019-09-16 03:45 | NUR ---
NOTIFIED HOSPITALIST REGARDING TRIGEM/PVC'S PAGER ID: [phone] MESSAGE: [id number] LORRIE FRANKLIN: ADMITTED FOR SOB AND R/O NSTEMI, HAS BEEN HAVING TRIGEMINY AND PVC'S CONSISTENTLY SINCE SHIFT 1800 09/14
[2019-09-16 05:53] LABS: ANION GAP 9 (8-16); BLOOD UREA NITROGEN 10 MG/DL (7-18); BUN/CREATININE RATIO 18.5 (6.6-38.0); CALCIUM 8.5 MG/DL (8.5-10.1); CHLORIDE 106 MMOL/L (99-107); CREATININE 0.54 MG/DL (0.40-0.90); GLUCOSE 101 MG/DL (70-104); POTASSIUM 4.1 MMOL/L (3.5-5.1); SODIUM 141 MMOL/L (135-145); TOTAL CARBON DIOXIDE 25.9 MMOL/L (24-32); eGFR > 90 ML/MIN
[2019-09-16 06:10] LABS: BASOPHILS % (AUTO) 0.3 % (0-1); EOSINOPHILS % (AUTO) 0.3 % (0-6); HEMATOCRIT 36.3 % (35.0-45.0); HEMOGLOBIN 12.5 g/dl (12.0-16.0); LYMPHOCYTES # (AUTO) 2.5 X10'3 (1.1-4.8); LYMPHOCYTES % (AUTO) 18.1 % (21-51); MEAN CORPUSCULAR HEMOGLOBIN 32.7 PG (27.0-31.0); MEAN CORPUSCULAR HGB CONC 34.4 g/dL (33.0-36.5); MEAN PLATELET VOLUME 9.5 FL (7.4-10.4); MONOCYTES # (AUTO) 1.6 X10'3 (0-0.9); MONOCYTES % (AUTO) 11.4 % (2-12); NEUTROPHILS # (AUTO) 9.5 X10'3 (1.8-7.7); NEUTROPHILS % (AUTO) 69.9 % (42-75); PLATELET COUNT 133 X10'3 (140-440); RED BLOOD COUNT 3.82 X10'6 (4.20-5.60); RED CELL DISTRIBUTION WIDTH 12.5 % (11.5-14.5); WHITE BLOOD COUNT 13.6 X10'3 (4.5-11.0)
--- NOTE | 2019-09-16 06:17 | NUR ---
CRITICAL HGB/HCT- 6.9/20.7 CALLED BY LAB 06 PAGER ID: [phone] MESSAGE: [phone] -JEANA HOLDER-CRITICAL H/H 6.9 AND 20.1 CALLED BY MATHEW IN LAB AT 0615 Addendum: 09/16/19 at 0619 by Marilu Carrasquillo RN WRONG PATIENT, DISREGARD
--- NOTE | 2019-09-16 06:21 | NUR ---
Problems reprioritized. Patient report given, questions answered & plan of care reviewed with PAT RN.
[2019-09-16] MEDS: sennosides/docusate sodium tablet PO SCH ×2 (08:00→20:24)
[2019-09-16] MEDS ORDERED: CefTRIAXone 2gm/D5W 50ml 50 ML IV SCH (08:00)
[2019-09-16] MEDS: HYDROcodone/acetaminophen 10/325mg tab PO PRN ×3 (09:04→20:38)
[2019-09-16] MEDS: aspirin 81mg tablet.DR PO SCH (09:05)
[2019-09-16] MEDS: clopidogrel 75mg tablet PO SCH (09:06)
[2019-09-16] MEDS: atorvastatin 10mg tablet PO SCH (09:06)
[2019-09-16] MEDS: metoprolol tartrate 12.5mg (1/2 tablet) PO SCH (09:06)
[2019-09-16] MEDS: potassium Cl 20 mEq SR tablet PO SCH ×2 (09:08→20:24)
[2019-09-16] MEDS: magnesium Cl slow-release 64mg tablet PO SCH ×2 (09:17→20:24)
[2019-09-16] MEDS: pantoprazole 40mg Tablet.DR PO SCH (09:18)
--- NOTE | 2019-09-16 10:00 | NUR ---
PATIENT'S HEART RATE SINUS TACH 120'S . DR. SR APPRISED OF HEART RATE AND RHYTHM; ORDERS RECEIVED AND NOTED. METOPROL 12.5 MG PO GIVEN AT THIS TIME PER ORDER.PT HELD FOR NOW DUE TO HEART RATE. Addendum: 09/16/19 at 1857 by Aleida Martínez RN Amended: Links added.
[2019-09-16] MEDS ORDERED: metoprolol tartrate 12.5mg (1/2 tablet) PO ONE ×2 (10:35→21:50)
--- NOTE | 2019-09-16 12:00 | NUR ---
PATIENT'S HEART RATE 109- 110 SR/ST. Addendum: 09/16/19 at 1901 by Aleida Martínez RN Amended: Links added.
[2019-09-16] MEDS: JUVEN Smoothie Arginine/Glut./Ca2+Bmb (Juven 19.3pkt) 240ml cup PO SCH ×2 (13:25→18:01)
--- NOTE | 2019-09-16 15:02 | NUR ---
PATIENT UP WITH PT AMBULATED APPROX 400'. HAD BURST OF SINUS TACH, 120'S;DR. SR APPRISED. Addendum: 09/16/19 at 1904 by Aleida Martínez RN Amended: Links added.
--- NOTE | 2019-09-16 18:00 | NUR ---
Patient in room MED 308. I have received report from VIOLETA SANABRIA and had the opportunity to ask questions and assume patient care.
--- NOTE | 2019-09-16 18:01 | NUR ---
CALLED [facility] - INFORMED PT HR STILL ST IN 100s-110s, WITH BURSTS INTO THE 120s. NO NEW MEDICATION ORDERS RECEIVED: MONITOR PATIENT AND REASSESS AFTER 2000 DOSE OF LOPRESSOR 25MG GIVEN.
[2019-09-16] MEDS ORDERED: metoprolol tartrate 25mg tablet PO SCH (20:00)
--- NOTE | 2019-09-16 21:42 | NUR ---
CALLED PROVIDER VLADIMIR FOR ELEVATED HR SUSTAINING IN 110S-120/130S WITH ACTIVITY; BP WNL; PRECRIBER ORDERED 12.5 METOPROLOL TARTTRATE 12.5 ONE TIME ADDITIONAL DOSE NOW, AND START 37.5 METORPROLOL TARTRATE BID STARTING AM 7/. PREEMPTIVELY OREDERED AMIODARONE PROTOCOL SET IF PATIENT SHOULD HAVE AFIB RHYTHM DURING NIGHT. WILL ORDER AND ADMINISTER SAID DRUGS AND CONTINUE TO MONITOR FOR S/S OF DYSRRYTHMIA/ELEVATED HR. MAXWELL SANABRIA
[2019-09-17 02:00] VITALS: BP 114/82
[2019-09-17 03:15] LABS: BASOPHILS % (AUTO) 0.3 % (0-1); EOSINOPHILS # (AUTO) 0.3 X10'3 (0-0.9); EOSINOPHILS % (AUTO) 2.3 % (0-6); HEMATOCRIT 36.5 % (35.0-45.0); HEMOGLOBIN 12.4 g/dl (12.0-16.0); LYMPHOCYTES # (AUTO) 2.8 X10'3 (1.1-4.8); LYMPHOCYTES % (AUTO) 23.4 % (21-51); MEAN CORPUSCULAR HEMOGLOBIN 32.1 PG (27.0-31.0); MEAN CORPUSCULAR HGB CONC 34.1 g/dL (33.0-36.5); MEAN CORPUSCULAR VOLUME 94.3 FL (78-98); MEAN PLATELET VOLUME 9.1 FL (7.4-10.4); MONOCYTES # (AUTO) 1.2 X10'3 (0-0.9); NEUTROPHILS # (AUTO) 7.6 X10'3 (1.8-7.7); PLATELET COUNT 183 X10'3 (140-440); RED BLOOD COUNT 3.88 X10'6 (4.20-5.60); RED CELL DISTRIBUTION WIDTH 12.6 % (11.5-14.5); WHITE BLOOD COUNT 11.9 X10'3 (4.5-11.0)
[2019-09-17 03:23] LABS: ALBUMIN 3.1 G/DL (3.4-5.0); ANION GAP 8 (8-16); BLOOD UREA NITROGEN 12 MG/DL (7-18); BUN/CREATININE RATIO 21.8 (6.6-38.0); CALCIUM 9.6 MG/DL (8.5-10.1); CHLORIDE 106 MMOL/L (99-107); CREATININE 0.55 MG/DL (0.40-0.90); GLUCOSE 110 MG/DL (70-104); POTASSIUM 4.3 MMOL/L (3.5-5.1); SODIUM 141 MMOL/L (135-145); TOTAL CARBON DIOXIDE 26.6 MMOL/L (24-32); eGFR > 90 ML/MIN
[2019-09-17] MEDS: HYDROcodone/acetaminophen 10/325mg tab PO PRN (03:46)
--- NOTE | 2019-09-17 05:56 | NUR ---
Problems reprioritized. Patient report given, questions answered & plan of care reviewed with Marilu SANABRIA.
[2019-09-17 06:00] VITALS: BP 108/72
--- NOTE | 2019-09-17 06:55 | NUR ---
Patient in room MED 308. I have received report from DANIELE Michel and had the opportunity to ask questions and assume patient care.
[2019-09-17] MEDS: pantoprazole 40mg Tablet.DR PO SCH (07:32)
[2019-09-17] MEDS: magnesium Cl slow-release 64mg tablet PO SCH ×2 (07:36→20:27)
[2019-09-17] MEDS: potassium Cl 20 mEq SR tablet PO SCH ×2 (07:37→20:26)
[2019-09-17] MEDS: sennosides/docusate sodium tablet PO SCH ×2 (07:37→20:27)
[2019-09-17] MEDS: clopidogrel 75mg tablet PO SCH (07:37)
[2019-09-17] MEDS: atorvastatin 10mg tablet PO SCH (07:37)
[2019-09-17] MEDS: aspirin 81mg tablet.DR PO SCH (07:37)
[2019-09-17] MEDS ORDERED: metoprolol tartrate 12.5mg (1/2 tablet) PO SCH (08:00)
[2019-09-17] MEDS ORDERED: HYDROcodone/acetaminophen 5mg/325mg tablet PO PRN (09:40)
[2019-09-17] MEDS: metoprolol tartrate 12.5mg (1/2 tablet) PO SCH (09:40)
[2019-09-17 10:00] VITALS: BP 108/76
[2019-09-17] MEDS: acetaminophen 325mg tablet PO PRN ×2 (12:26→20:38)
[2019-09-17] MEDS: JUVEN Smoothie Arginine/Glut./Ca2+Bmb (Juven 19.3pkt) 240ml cup PO SCH ×2 (12:27→13:27)
[2019-09-17 14:00] VITALS: BP 93/65
[2019-09-17 18:00] VITALS: BP 119/80
--- NOTE | 2019-09-17 18:13 | NUR ---
Patient in room MED 308. I have received report from sharda SANABRIA and had the opportunity to ask questions and assume patient care.
--- NOTE | 2019-09-17 18:34 | NUR ---
Problems reprioritized. Patient report given, questions answered & plan of care reviewed with DANIELE abernathy.
[2019-09-17] MEDS: metoprolol tartrate 50mg tablet PO SCH (20:27)
[2019-09-17 23:14] VITALS: BP 102/72
[2019-09-18 02:00] VITALS: BP 103/68
[2019-09-18] MEDS: acetaminophen 325mg tablet PO PRN (02:33)
[2019-09-18 05:11] LABS: BASOPHILS # (AUTO) 0.1 X10'3 (0-0.2); BASOPHILS % (AUTO) 0.7 % (0-1); EOSINOPHILS # (AUTO) 0.3 X10'3 (0-0.9); EOSINOPHILS % (AUTO) 2.8 % (0-6); HEMATOCRIT 37.8 % (35.0-45.0); MEAN CORPUSCULAR HEMOGLOBIN 32.1 PG (27.0-31.0); MEAN CORPUSCULAR HGB CONC 34.2 g/dL (33.0-36.5); MEAN CORPUSCULAR VOLUME 93.6 FL (78-98); MEAN PLATELET VOLUME 8.8 FL (7.4-10.4); MONOCYTES # (AUTO) 1.2 X10'3 (0-0.9); NEUTROPHILS # (AUTO) 6.5 X10'3 (1.8-7.7); NEUTROPHILS % (AUTO) 58.5 % (42-75); PLATELET COUNT 231 X10'3 (140-440); RED BLOOD COUNT 4.04 X10'6 (4.20-5.60); RED CELL DISTRIBUTION WIDTH 12.9 % (11.5-14.5); WHITE BLOOD COUNT 11.2 X10'3 (4.5-11.0)
[2019-09-18 05:36] LABS: ALBUMIN 3.1 G/DL (3.4-5.0); ANION GAP 11 (8-16); BLOOD UREA NITROGEN 13 MG/DL (7-18); BUN/CREATININE RATIO 19.1 (6.6-38.0); CALCIUM 9.4 MG/DL (8.5-10.1); CHLORIDE 106 MMOL/L (99-107); CREATININE 0.68 MG/DL (0.40-0.90); GLUCOSE 100 MG/DL (70-104); MAGNESIUM 1.9 MG/DL (1.5-2.4); POTASSIUM 4.2 MMOL/L (3.5-5.1); SODIUM 142 MMOL/L (135-145); TOTAL CARBON DIOXIDE 25.2 MMOL/L (24-32); eGFR 90 ML/MIN
[2019-09-18 06:00] VITALS: BP 99/75
--- NOTE | 2019-09-18 06:26 | NUR ---
Problems reprioritized. Patient report given, questions answered & plan of care reviewed with Marilu SANABRIA.
--- NOTE | 2019-09-18 06:55 | NUR ---
Patient in room MED 308. I have received report from marylin Michel and had the opportunity to ask questions and assume patient care.
[2019-09-18] MEDS ORDERED: ASPI-1071 PO (07:36)
[2019-09-18] MEDS ORDERED: HYDR-4383 PO (07:36)
[2019-09-18] MEDS ORDERED: ATOR10TA PO (07:36)
[2019-09-18] MEDS ORDERED: CLOP75TA35 PO (07:36)
[2019-09-18] MEDS ORDERED: METO50TA16 PO (07:36)
[2019-09-18] MEDS: metoprolol tartrate 50mg tablet PO SCH (08:00)
[2019-09-18] MEDS: aspirin 81mg tablet.DR PO SCH (08:52)
[2019-09-18] MEDS: potassium Cl 20 mEq SR tablet PO SCH (08:52)
[2019-09-18] MEDS: sennosides/docusate sodium tablet PO SCH (08:53)
[2019-09-18] MEDS: atorvastatin 10mg tablet PO SCH (08:53)
[2019-09-18] MEDS: magnesium Cl slow-release 64mg tablet PO SCH (08:53)
[2019-09-18] MEDS: metoprolol tartrate 12.5mg (1/2 tablet) PO SCH (08:57)
[2019-09-18] MEDS: clopidogrel 75mg tablet PO SCH (08:57)
[2019-09-18] MEDS: pantoprazole 40mg Tablet.DR PO SCH (09:10)
[2019-09-18 10:00] VITALS: BP 109/70
[2019-09-18] MEDS ORDERED: digoxin 250mcg/ml 2ml ampule IV ONE (10:20)
--- NOTE | 2019-09-18 11:58 | NUR ---
Patient heart rate currently 88-92. Dose of digoxin not given yet as patients IV went bad and Primary RN Marilu unable to administer. Charge nurse "undid" give on EMAR. Per Dr Eldridge, once we have IV access, walk patient to see if heart rate increases and sustains back in 120's-130's. If heart rate remains controlled, hold the digoxin give. MD is also to be notified of what heart rate does after walking. Paged PICC Re Suzi Chatman [address]. [address] PIV when you have moment, multiple failed attempts.
[2019-09-18 14:00] VITALS: BP 107/66
--- NOTE | 2019-09-18 15:15 | NUR ---
reviewed all discharge instructions ,including need for f/u appts. all post cabg mobility precautions,precriptions faxed to [facility] [address],.[facility] dc'd from [facility],site slightly reddened ,warm moist compresses applied,pt dc'd via wheelchair with all belongings.to significant other motelroom tonight after meds obtained ,over to [facility] in am
--- NOTE | 2019-09-18 15:27 | NUR ---
pt amb in hallways,heart rate up to 103,down to 80-90 within 5 mins,dr. ricci informed.
[2019-09-18] MEDS ORDERED: digoxin 250mcg/ml 2ml ampule IV SCH (20:00)
[2019-09-20] MEDS ORDERED: digoxin 250mcg/ml 2ml ampule IV SCH (08:00)
== END 2019-09-18 15:08 | disposition home or self-care (01) | DRG 236 ==
LOC: ER 07:39 → ED HOLD 10:47 → PCU 3S 12:55 → MED 3N 09-12 19:35 → ICU 2S 09-13 11:49 → MED 3N 09-15 10:00
PROVIDERS: ADMIT Internal Medicine; ATTEND Thoracic Surgery (Cardiothoracic Vascular Surgery)
PROC: 021009W Bypass Coronary Artery, One Artery from Aorta with Autologous Venous Tissue, Open Approach (ICD-10-PCS; 2019-09-13)
PROC: 06BP4ZZ Excision of Right Saphenous Vein, Percutaneous Endoscopic Approach (ICD-10-PCS; 2019-09-13)
PROC: 02110Z9 Bypass Coronary Artery, Two Arteries from Left Internal Mammary, Open Approach (ICD-10-PCS; 2019-09-13)
PROC: 02100Z8 Bypass Coronary Artery, One Artery from Right Internal Mammary, Open Approach (ICD-10-PCS; 2019-09-13)
PROC: 5A1221Z Performance of Cardiac Output, Continuous (ICD-10-PCS; 2019-09-13)
PROC: B24BZZ4 Ultrasonography of Heart with Aorta, Transesophageal (ICD-10-PCS; 2019-09-13)
PROC: 06BQ4ZZ Excision of Left Saphenous Vein, Percutaneous Endoscopic Approach (ICD-10-PCS; principal; 2019-09-13 08:50)
DX: I21.4 Non-ST elevation (NSTEMI) myocardial infarction (principal); F12.90 Cannabis use, unspecified, uncomplicated; Z71.6 Tobacco abuse counseling; F17.210 Nicotine dependence, cigarettes, uncomplicated; D72.829 Elevated white blood cell count, unspecified; E66.9 Obesity, unspecified; I25.110 Atherosclerotic heart disease of native coronary artery with unstable angina pectoris; E83.119 Hemochromatosis, unspecified; Z82.49 Family history of ischemic heart disease and other diseases of the circulatory system; Z68.36 Body mass index [BMI] 36.0-36.9, adult; Z03.818 Encounter for observation for suspected exposure to other biological agents ruled out
CPT/HCPCS: 0232T; 93306; 93312; 93325; 93458; 99285; Z7506; Z7508; 36415; 36600; 71045; 80048; 80053; 80061; 80305; 81001; 82330; 82435; 82803; 82947; 82948; 83036; 83605; 83735; 83880; 84100; 84132; 84145; 84295; 84484; 85018; 85025; 85347; 85384; 85610; 85730; 86885; 86900; 86901; 86920; 87040; 87081; 87635; 93005; 93880; 93971; 94002; 94010; 94760; 97110; 97116; 97161; 97530; 99152; A4618; A4620; A6258; A6402; A6449; A7000; A7048; C1713; C1751; C1760; C1769; C1776; C9113; G0378; J0131; J0690; J1160; J1644; J1815; J2001; J2060; J2150; J2250; J2270; J2370; J2440; J2543; J2930; J3010; J3370; J3475; J3480; J3490; J7030; J7040; J7050; J7120; P9045; P9047; Q9967